=== PATIENT | female | born 1990 | race American Indian/Alaskan Native ===

== ENCOUNTER 2021-07-28 09:08 | Emergency (ER) | payer SELFPAY ==
[2021-07-28] MEDS ORDERED: traMADol 50 MG TAB PO ONE (09:49)
--- NOTE | 2021-07-28 11:39 | Emergency Department Report ---
ED General Adult HPI - General Chief complaint: Extremity Injury, Upper Stated complaint: LEFT INDEX FINGER SWOLLEN Time Seen by Provider: 07/28/21 09:40 Source: patient Mode of arrival: Ambulatory Limitations: No Limitations - History of Present Illness Initial comments: Patient 31-year-old female presents for To right index finger. Patient states she placed her grandmother's wedding ring on her finger last night and went to sleep and woke up with a swollen index finger. Now 5/10 pain swelling aching. Requesting ring removal. Patient has secondary complaint of abrasions to right knee and hip. States she fell in her [place] on yesterday. There is no fevers no chills no nausea vomiting no other complaint. Severity scale (0 -10): 10 - Related Data Previous Rx's Medication Instructions Recorded Last Taken Type Ibuprofen [Motrin 800 MG tab] 800 mg PO Q8HR PRN #30 tablet 07/28/21 Unknown Rx Mupirocin [Bactroban 2% OINT] 1 applic TP BID #1 tube 07/28/21 Unknown Rx Allergies Allergy/AdvReac Type Severity Reaction Status Date / Time gluten Allergy Nausea Verified 07/28/21 09:14 ED Review of Systems ROS: Stated complaint: LEFT INDEX FINGER SWOLLEN Other details as noted in HPI Constitutional: denies: chills, fever Eyes: denies: eye pain, eye discharge, vision change ENT: denies: ear pain, throat pain Respiratory: denies: cough, shortness of breath, wheezing Cardiovascular: denies: chest pain, palpitations Endocrine: no symptoms reported Gastrointestinal: denies: abdominal pain, nausea, diarrhea Genitourinary: as per HPI Musculoskeletal: denies: back pain, joint swelling, arthralgia Skin: other (Retained ring right index finger). denies: rash, lesions Neurological: denies: headache, weakness, paresthesias, vertigo Psychiatric: denies: anxiety, depression Hematological/Lymphatic: denies: easy bleeding, easy bruising ED Past Medical Hx - Past Medical History Previous Medical History?: No - Surgical History Past Surgical History?: No - Medications Home Medications: Home Medications Medication Instructions Recorded Confirmed Last Taken Type Ibuprofen [Motrin 800 MG tab] 800 mg PO Q8HR PRN #30 tablet 07/28/21 Unknown Rx Mupirocin [Bactroban 2% OINT] 1 applic TP BID #1 tube 07/28/21 Unknown Rx ED Physical Exam - General Limitations: No Limitations General appearance: alert, in no apparent distress - Head Head exam: Present: normocephalic, normal inspection - Eye Eye exam: Present: normal appearance, PERRL, EOMI Pupils: Present: normal accommodation - ENT ENT exam: Present: mucous membranes moist - Neck Neck exam: Present: normal inspection - Respiratory Respiratory exam: Present: normal lung sounds bilaterally. Absent: respiratory distress, wheezes - Cardiovascular Cardiovascular Exam: Present: regular rate, normal rhythm, normal heart sounds. Absent: systolic murmur, diastolic murmur, rubs, gallop - GI/Abdominal GI/Abdominal exam: Present: soft. Absent: distended, tenderness - Rectal Rectal exam: Present: deferred - Extremities Exam Extremities exam: Present: normal inspection, full ROM, normal capillary refill - Expanded Upper Extremity Exam Right Hand Wrist exam: Present: tenderness, swelling, other (Retaining urine) Neuro motor exam: Present: wrist extension intact, thumb opposition intact, thumb IP flexion intact, thumb adduction intact, fingers 2-5 abduction intact Neurosensory exam: Present: radial nerve intact - Back Exam Back exam: Present: normal inspection, full ROM. Absent: CVA tenderness (R), CVA tenderness (L) - Neurological Exam Neurological exam: Present: alert, oriented X3, CN II-XII intact, normal gait - Psychiatric Psychiatric exam: Present: normal affect, normal mood - Skin Skin exam: Present: warm, dry, intact, normal color, erythema (Right index finger multiple abrasions to right knee and hip superficial all.). Absent: rash ED Course Vital Signs 07/28/21 09:17 Temperature 97.8 F Pulse Rate 82 Respiratory 20 Rate Blood Pressure 155/86 [Left] Blood Pressure 155/86 [Right] O2 Sat by Pulse 100 Oximetry - Procedure Description Procedures done: Ring removed from right index finger. Using electric ring cutter. Patient tolerated procedure with minimal distress [employer] less than 3 seconds bilateral distal pulses are intact. There are minimal abrasions. Patient given wound care instructions including follow-up primary care doctor in 2 to 3 days and return to ED should symptoms worsen. There is no bleeding no other wound. ED Medical Decision Making - Medical Decision Making Ring removal right index finger see procedure note. Minor abrasions to right knee and hip. Patient DC to home. Given wound care instructions will follow up primary care doctor in 2 days. Will return to ED should symptoms worsen. Critical care attestation.: If time is entered above; I have spent that time in minutes in the direct care of this critically ill patient, excluding procedure time. ED Disposition Clinical Impression: Finger pain, right, Abrasions of multiple sites Disposition: 01 HOME / SELF CARE / HOMELESS Is pt being admited?: No Does the pt Need Aspirin: No Condition: Stable Instructions: Abrasion, Skin Tear Additional Instructions: Use medication as prescribed, wash with soap and water daily. Follow-up with your doctor in 2 days for wound check. Return to emergency department if symptoms worsen. Prescriptions: Mupirocin [Bactroban 2% OINT] 1 applic TP BID #1 tube Ibuprofen [Motrin 800 MG tab] 800 mg PO Q8HR PRN #30 tablet PRN Reason: pain Referrals: NATHANAEL PHAN MD [Staff Physician] - 3-5 Days Forms: Work/School Release Form(ED) Time of Disposition: 11:42
[2021-07-28 12:17] VITALS: BP 120/86
== END 2021-07-28 12:16 | disposition home or self-care (01) ==
LOC: ED 09:08
DX: S60.410A Abrasion of right index finger, initial encounter (principal); M79.644 Pain in right finger(s); X58.XXXA Exposure to other specified factors, initial encounter; Y93.9 Activity, unspecified; Y92.89 Other specified places as the place of occurrence of the external cause; Y99.8 Other external cause status
CPT/HCPCS: 99282